=== PATIENT | male | born 1995 | race Hispanic/Latino ===

== ENCOUNTER 2023-06-06 21:48 | Emergency (ER) | payer OTHER ==
[~2023-06-06] VITALS: Ht 170.2 cm; Wt 116.1 kg
[2023-06-06 21:58] VITALS: BP 127/77; PULSE 111; RESP 20
[2023-06-06] MEDS ORDERED: KETOROLAC 30MG VIAL (30MG/ML) IM ONE (23:00)
[2023-06-07] MEDS ORDERED: NAPR-1180 PO (00:25)
[2023-06-07] MEDS ORDERED: CYCL-309 PO (00:25)
== END 2023-06-07 00:31 | disposition home or self-care (01) ==
LOC: EDH 21:48
DX: S39.012A Strain of muscle, fascia and tendon of lower back, initial encounter (principal); Z88.0 Allergy status to penicillin; W01.0XXA Fall on same level from slipping, tripping and stumbling without subsequent striking against object, initial encounter; Y93.89 Activity, other specified; Y92.89 Other specified places as the place of occurrence of the external cause; Y99.8 Other external cause status
CPT/HCPCS: 99283; 72100; 96372; J1885